=== PATIENT | female | born 1995 | race Caucasian/White ===

== ENCOUNTER 2019-03-31 18:18 | Emergency (ER) | payer BC ==
[~2019-03-31] VITALS: Ht 180.3 cm; Wt 62.6 kg
[2019-03-31 18:21] VITALS: BP 119/83
[2019-03-31] MEDS ORDERED: NKM (18:25)
--- NOTE | 2019-03-31 18:57 | NUR ---
ED Nurse Note: PT STATES YELLOW DRAINAGE WAS COMING OUT OF HER NOSE X 1 HOUR AGO AFTER SHE LEANED OVER TO [employer]. PT CONCERNED IT MAY BE CSF. PT STATES SHE WAS RIDING A MECHANICAL BULL X 2 DAYS AGO AND BELIEVES THIS MAY BE RELATED. PT DENIES HEAD TRAUMA/LOC. PT DENIES HEADACHE, DIZZINESS, NAUSEA OR VOMITING.
[2019-03-31] MEDS ORDERED: IBUPROFEN600 MG ORAL (20:12)
--- NOTE | 2019-03-31 20:12 | Emergency Room Report ---
History of Present Illness General Chief Complaint: General Complaint Source: Patient Present Illness HPI 24-year-old female with no significant past medical history here complaining of lots of yellow discharge from her nose as she was bending forward today. Patient reports that she was in a mechanical fall last night and fell a few times in the back of her head never on her face. However she fell on cushion. Denies loss of consciousness, dizziness, headache, nausea vomiting, blurry vision. Patient reports that she leaned forward today the pain in her right as lots of yellow fluid that were blood tinged came out. Denies recent URI symptoms and fever and chills. Denies direct facial trauma. Patient is wondering if this is a cerebrospinal fluid coming down. Denies ear pain and ear pressure. Denies nasal bleed. Allergies: Coded Allergies: BACITRACIN (Verified Allergy, Unknown, 03/31/19) NEOMYCIN (Verified Allergy, Unknown, 03/31/19) POLYMYXIN B (Verified Allergy, Unknown, 03/31/19) Patient History Past Medical History: see triage record Past Surgical History: unable to obtain Pertinent Family History: none Last Menstrual Period: 01/2019 Now: No - IUD Immunizations: UTD Reviewed Nursing Documentation: PMH: Agreed; PSxH: Agreed Nursing Documentation-PMH Past Medical History: No Stated History Review of Systems All Other Systems: negative except mentioned in HPI Physical Exam Vital Signs Date Time Temp Pulse Resp B/P (MAP) Pulse Ox O2 Delivery O2 Flow Rate FiO2 03/31/19 18:21 98.4 73 16 119/83 (95) 97 Room Air Sp02 EP Interpretation: reviewed, normal General Appearance: normal inspection, well appearing, no apparent distress, alert, GCS 15 Head: normocephalic, atraumatic Eyes: bilateral eye normal inspection, bilateral eye PERRL ENT: normal ENT inspection, hearing grossly normal, normal pharynx, other - No septal hematoma, no yepez sign, no abnormal tympanic membrane and ear canals. Neck: normal inspection, full range of motion, supple Respiratory: normal inspection, chest non-tender, lungs clear, no rhonchi, no respiratory distress, no wheezing Cardiovascular #1: normal inspection, normal peripheral pulses, no murmur, no rub Gastrointestinal: normal inspection, non tender, soft Genitourinary: no CVA tenderness Musculoskeletal: normal inspection, back normal, normal range of motion Neurologic: normal inspection, alert, oriented x3, responsive, head soft sugar operator III-XII nml as tested, sensory intact Skin: no rash, normal color Lymphatic: normal inspection, no adenopathy Medical Decision Making PA Attestation All my diagnosis and treatment plans were reviewed ad discussed with my supervising physician Dr. Villanueva Diagnostic Impression: Primary Impression: Purulent rhinorrhea Additional Impression: Head contusion ER Course 24-year-old female with no significant past medical history here complaining of lots of yellow discharge from her nose as she was bending forward today. Patient reports that she was in a mechanical fall last night and fell a few times in the back of her head never on her face. However she fell on cushion. Denies loss of consciousness, dizziness, headache, nausea vomiting, blurry vision. Patient reports that she leaned forward today the pain in her right as lots of yellow fluid that were blood tinged came out. Denies recent URI symptoms and fever and chills. Denies direct facial trauma. Patient is wondering if this is a cerebrospinal fluid coming down. Denies ear pain and ear pressure. Denies nasal bleed. Ddx considered but are not limited to: cerebral hematoma, concussion, skull fracture, head contusion , basal skull fracture, sinusitis, rhinorrhea purulent Vital signs: are WNL, pt. is afebrile H&PE are most consistent with: Purulent rhinorrhea most likely secondary to sinus abscess, head contusion ORDERS: head CT no contrast , ibuprofen ED INTERVENTIONS: None required at this time. DISCHARGE: At this time pt. is stable for d/c to home. Will provide printed patient care instructions, and any necessary prescriptions. Care plan and follow up instructions have been discussed with the patient prior to discharge. Patient to follow-up with her primary care provider and return to the emergency room with worsening symptoms I explained to the patient that she might of had a lot of sinus congestion and due to repeated rotational movements her sinuses drained. The fluid that she had collected on the tissue paper is not suggestive of cerebrospinal fluid as there is no halo formation around it and it looks very purulence CT/MRI/US Diagnostic Results CT/MRI/US Diagnostic Results : Imaging Test Ordered: Head CT no contrast Impression CT HEAD Without Contrast: FINDINGS: No intracranial hemorrhage, abnormal intra- or extra-axial collections or parenchymal lesions are seen. The shape and configuration of the cortical sulci, basal cisterns and ventricles are within normal limits. The longoria -white differentiation is preserved. No evidence of mass effect, midline shift, or edema. The osseous structures are unremarkable. The visualized portions of the paranasal sinuses are clear. IMPRESSION: Unremarkable CT of brain Last Vital Signs Date Time Temp Pulse Resp B/P (MAP) Pulse Ox O2 Delivery O2 Flow Rate FiO2 03/31/19 18:21 98.4 73 16 119/83 97 Room Air Disposition: HOME, SELF-CARE Condition: Stable Scripts Ibuprofen* (MOTRIN*) 600 Mg Tablet 600 MG ORAL Q8H PRN for For Pain, #30 TAB 0 Refills Prov: Yara Castro 03/31/19 Referrals: NOT CHOSEN IPA/MD,REFERRING (PCP) Patient Instructions: Facial or Scalp Contusion, [id number] Additional Instructions: Take medication as directed follow-up with your primary care provider for more evaluation if symptoms continue avoid strenuous physical activity and rotational movements of the head. If worsening symptoms return to the emergency room Yara Castro Mar 31, 2019 20:12
[2019-03-31 20:20] VITALS: BP 125/80
--- NOTE | 2019-03-31 20:20 | NUR ---
ER DISCHARGE NOTE: Patient is cleared to be discharged per ERMD, pt is aox4, on room air, with stable vital signs. pt was given dc and prescription instructions, pt was able to verbalize understanding, pt id band removed without complications. pt is able to ambulate with steady gait. pt took all belongings.
--- NOTE | 2019-04-01 11:33 | Diagnostic Imaging Report ---
Indication: Head trauma headache Technique: Contiguous 5 mm thick transaxial imaging of the head obtained in a Siemens Sensation [address] scanner. Soft tissue and bone windows generated. Automatic Exposure Control was utilized. Total Dose length Product (DLP): 1340.[address] Dose Index Volume (CTDIvol): 70.38 mGy Comparison: none Findings: The size and configuration of the cortical sulci, basal cisterns, and ventricles are within normal limits for age. There is no mass effect, midline shift, or edema identified. There is no evidence of acute hemorrhage or abnormal intra-axial or extra-axial fluid collections. The bones and soft tissues are unremarkable. Impression: No mass effect, edema or acute bleed. [facility] has communicated the preliminary results to the Emergency Department. Their findings are largely concordant with this report. The CT scanner at [facility] is accredited by the [employer] and the scans are performed using dose optimization techniques as appropriate to a performed exam including Automatic Exposure control.
== END 2019-03-31 20:20 | disposition home or self-care (01) ==
LOC: EMR 19:30
DX: J34.89 Other specified disorders of nose and nasal sinuses (principal); S00.93XA Contusion of unspecified part of head, initial encounter; W19.XXXA Unspecified fall, initial encounter; Y92.9 Unspecified place or not applicable; Z88.8 Allergy status to other drugs, medicaments and biological substances
CPT/HCPCS: 70450; 81025; 99284